=== PATIENT | female | born 1935 | race Caucasian/White ===

== ENCOUNTER 2018-03-17 16:01 | Outpatient (REF) | payer MEDICARE, BC, MEDICAID, SELFPAY ==
[2018-03-17 16:34] LABS: HCT 40.2 % (36.0-46.0); HGB 12.7 g/dL (12.0-15.5); Mean Corp. HGB Concentration 31.6 g/dL (32.0-36.0); Mean Corpuscular Hemoglobin 31.1 pg (27.0-33.0); Mean Corpuscular Volume 98.3 fL (80-95); Mean Platelet Volume 12.7 fL (8.0-11.0); RBC 4.09 m/cumm (4.00-5.20); RBC Distribution Width 14.9 % (11.7-14.6); White Blood Cell Count 6.06 k/cumm (4.4-10.8)
[2018-03-17 16:48] LABS: Platelet Count 95 x1000/uL (130-400)
[2018-03-17 17:44] LABS: ALT 13 U/L (12-78); AST 25 U/L (15-37); Albumin 3.3 g/dL (3.4-5.0); Alkaline Phosphatase 74 U/L (46-116); Anion Gap 6.2 mmol/L (3-11); BUN 25 mg/dL (7-18); Bilirubin, Total 0.9 mg/dL (0.2-1.0); CO2 27.8 mmol/L (21.0-32.0); CREATININE 0.84 mg/dL (0.55-1.02); Calcium 8.2 mg/dL (8.5-10.1); Chloride 107 mmol/L (98-107); Glucose 77 mg/dL (70-100); Potassium 4.5 mmol/L (3.5-5.1); Sodium 141 mmol/L (136-145); Vitamin B12 930 pg/mL (193-986)
[2018-03-17 17:46] LABS: Folate > 20.0 ng/mL (8.6-20.0)
[2018-03-22 09:39] LABS: Methylmalonic Acid 0.24 nmol/mL (<=0.40)
== END 2018-03-17 16:21 ==
LOC: LBN 16:01
PROVIDERS: PCP Family Medicine; Visit Provider Family Medicine
DX: D64.9 Anemia, unspecified (principal)
CPT/HCPCS: 36415; 80053; 80186; 85027; 82607; 82746; 85045

== ENCOUNTER 2018-04-06 12:25 | Outpatient (REF) | payer MEDICARE, BC, MEDICAID, SELFPAY ==
[2018-04-06 15:42] LABS: ALT 19 U/L (12-78); AST 23 U/L (15-37); Albumin 3.4 g/dL (3.4-5.0); Alkaline Phosphatase 71 U/L (46-116); Anion Gap 9.1 mmol/L (3-11); BUN 21 mg/dL (7-18); Bilirubin, Total 1.5 mg/dL (0.2-1.0); CO2 29.9 mmol/L (21.0-32.0); CREATININE 0.92 mg/dL (0.55-1.02); Calcium 8.5 mg/dL (8.5-10.1); Chloride 106 mmol/L (98-107); Estimated GFR 58.44 (mL/min/1.73m2); Glucose 113 mg/dL (70-100); Sodium 145 mmol/L (136-145); Total Protein 6.1 g/dL (6.4-8.2)
[2018-04-06 15:49] LABS: Abs Immature Grans 0.01 k/cumm (0.0-0.09); Absolute Basophil Count 0.02 k/cumm (0.0-0.2); Absolute Eosinophil Count 0.08 k/cumm (0.0-0.7); Absolute Lymphocyte Count 0.44 k/cumm (1.2-3.4); Absolute Monocyte Count 0.33 k/cumm (0.11-0.7); Absolute Neutrophil Count 4.54 k/cumm (1.2-6.7); Basophils % 0.4; Eosinophils % 1.5; HGB 13.9 g/dL (12.0-15.5); Immature Grans % 0.2; Lymphocytes % 8.1; Mean Corp. HGB Concentration 32.3 g/dL (32.0-36.0); Mean Corpuscular Volume 99.1 fL (80-95); Mean Platelet Volume 12.6 fL (8.0-11.0); Monocytes % 6.1; Neutrophils % 83.7; RBC 4.34 m/cumm (4.00-5.20); RBC Distribution Width 16.4 % (11.7-14.6); White Blood Cell Count 5.42 k/cumm (4.4-10.8)
[2018-04-06 16:11] LABS: Platelet Count 79 x1000/uL (130-400)
== END 2018-04-06 12:45 ==
LOC: LBN 12:25
PROVIDERS: PCP Family Medicine; Visit Provider Nurse Practitioner Family
DX: R05 Cough (principal); R06.2 Wheezing; R50.9 Fever, unspecified
CPT/HCPCS: 80053; 85025

== ENCOUNTER 2018-04-06 14:41 | Outpatient (CLI) | payer MEDICARE, BC, MEDICAID, SELFPAY ==
--- NOTE | 2018-04-06 11:03 | DI.RAD_ITS ---
SYMPTOMS/DIAGNOSIS: COUGH, WHEEZE, FEVER AP CHEST: There are some increased interstitial markings in the lungs. The heart is top limits of normal in size. There is questionable prominence of the upper lobe vasculature which could be related to the patient's positioning, however, the possibility of pulmonary venous hypertension and mild congestive failure could not be excluded. Incidental note is made of an old healed fracture deformity involving the proximal left humerus and severe glenohumeral DJD. SUMMARY: The possibility of mild congestive failure is raised.
== END 2018-04-06 15:01 ==
PROVIDERS: PCP Family Medicine; Visit Provider Nurse Practitioner Family
DX: R05 Cough (principal); R06.2 Wheezing; R50.9 Fever, unspecified
CPT/HCPCS: 71045

== ENCOUNTER 2018-04-14 14:14 | Emergency (ER) | payer MEDICARE, BC, MEDICAID, SELFPAY ==
[2018-04-14] VITALS (26 sets, daily range): BP systolic 96–212; BP diastolic 71–193; PULSE 61–117; RESP 11–30; TEMP 36.4–36.5; O2SAT 87–100
--- NOTE | 2018-04-14 14:16 | DI.RAD_ITS ---
SYMPTOMS/DIAGNOSIS: FEVER, DECREASED ACTIVITY AP AND LATERAL CHEST: The heart is enlarged. Comparison with previous chest radiographs raise the possibility of slightly increased radiodensities at the right lung base and interval development of small bilateral pleural effusions. Additionally there is suggestion of left lower lobe patchy consolidation raising the possibility of pneumonia. CONCLUSION: Findings raising the possibility of pneumonia of the left lower lobe and mild CHF. Appropriate follow up studies requested.
--- NOTE | 2018-04-14 14:19 | W.ED.GENAD ---
Discharge Plan Disposition Patient Disposition: SNF (LEVEL 1) [facility] Condition: Improving Discharge Details Chief Complaint: Fever Clinical Impression: Pneumonia involving left lung, Congestive heart failure Reason For Visit: JUN Primary Care Provider: Darin Yancey ED Provider: Sp Blair Home Meds and New Rx's Prescriptions: Continue aspirin 81 MG tablet,delayed release (DR/EC) 81 mg PO DAILY Qty: 90 RF: 3 cyanocobalamin (vitamin B-12) [Vitamin B-12] 1,000 MCG tablet extended release 1,000 mcg PO DAILY Qty: 90 RF: 4 multivitamin 1 EACH capsule 1 ea PO DAILY Qty: 90 RF: 0 furosemide 20 MG tablet 20 mg PO BID@0830,1600 Qty: 90 RF: 1 acetaminophen [Tylenol] 325 MG tablet 650 mg PO Q6H PRN Qty: 360 RF: 3 sertraline [Zoloft] 50 MG tablet 25 mg PO DAILY Qty: 90 RF: 0 docusate sodium 100 MG capsule 100 mg PO BID Qty: 1 RF: 0 sennosides [senna] 8.6 MG capsule 8.6 mg PO BID Qty: 1 RF: 0 levothyroxine [Synthroid] 100 MCG tablet 100 mcg PO DAILY RF: 0 metoprolol tartrate 25 MG tablet 12.5 mg PO QAM RF: 0 polyethylene glycol 1450(bulk) [Polyglycol Bill Base] 1 GM powder 17 g PO QAM RF: 0 ferrous sulfate [FerrouSul] 325 MG tablet 325 mg PO QPM RF: 0 oxycodone 5 MG tablet 5 mg PO QAM RF: 0 albuterol sulfate 2.5 MG/3 ML solution for nebulization 2.5 mg Inhalation Q4H PRN PRN (Reason: Dyspnea) RF: 0 guaifenesin 100 MG/5 ML liquid 5 ml PO Q6H PRN PRN (Reason: Cough) RF: 0 magnesium hydroxide [Milk of Magnesia] 30 ML suspension 30 ml PO DAILY PRN (Reason: Constipation) RF: 0 bisacodyl [Dulcolax (bisacodyl)] 10 MG suppository 1 supp [place] DAILY PRNRF: 0 memantine [Namenda XR] 28 MG capsule,sprinkle,ER 24hr 28 mg PO DAILY RF: 0 oxycodone 5 MG tablet 5 mg PO Q12H PRN PRN (Reason: Pain) Qty: 10 RF: 0 ipratropium-albuterol 3 ML solution for nebulization 3 ml UPD Q4H PRN PRNQty: 0 RF: 0 benzonatate 100 MG capsule 100 mg PO TID Qty: 15 RF: 0 folic acid 1 mg Tablet 1 mg PO DAILY RF: 0 saliva substitute combo no.9 [Biotene Dry Mouth Oral Rinse] Mouthwash 5 ml PO AC RF: 0 magnesium oxide 400 MG tablet 400 mg PO BID RF: 0 Discontinued cefpodoxime 200 MG tablet 200 mg PO BID RF: 0 clindamycin HCl 300 MG capsule 300 mg PO TID Qty: 21 RF: 0 Discharge Instructions Instructions: Pneumonia (ED) Additional Instructions: I discussed your case today with Dr. Muse. You has evidence of pneumonia, dehydration, as well as persistent congestive heart failure. You received approximately 250 cc of fluid in the emergency department as well as a dose of ceftriaxone. Medical Decision Making This is a 82-year-old female who lives in local rehabilitation facility where she developed a fever overnight and question of decreased responsiveness today for which she is referred to the ED. She is known to be DNR, DNI, with numerous medical comorbidities and wishes for comfort measures to include antibiotics if needed. Prior to transfer the patient had been given parenteral fluids as well as a double dose of oral Lasix. She arrives with a rectal temperature of 36.5, mild resting tachycardia, otherwise unremarkable vital signs. She has normal oxygenation on room air. The differential diagnosis includes elective right abnormality, fluid imbalance, infectious etiology such as UTI or pneumonia. Patient had IV access established, given small aliquot of fluid, referred for laboratory testing, urinalysis, chest x-ray. Patient's imaging reveals evidence of both infiltrate as well as fluid overload which may be chronic. Her laboratory analysis notes a rise of the BUN from 21-30 over 8 days time. Her sodium is 145 with a potassium of 3.6. Lactic acid 1.4. BNP 34,000. CBC reveals white blood cell count of 4, hematocrit 40, platelets 68; urinalysis with specific gravity greater than 1.03, trace ketones, leuk esterase present. Case discussed with Dr. Muse, we will administer a dose of ceftriaxone the patient will return to the rehabilitation facility. The patient is essentially bedbound at this time and therefore I do feel that she will require ambulance transport. I discussed with her son the patient's diagnostic findings and plan of care. HPI General Mode of arrival: ambulatory. Date/Time Provider Initiated Documentation: 04/14/18 14:24. Limitations to Documentation: altered mental status. Information obtained by: EMS, RN notes reviewed and old records reviewed. History of Present Illness 82 year old F presents to the emergency department with the chief complaint of Fever last night, and it has been now resolved. HPI Narrative: 82-year-old female who is DNR, DNI, on comfort measures at local rehabilitation facility but has her wishes stating she is okay to transport if not comfortable and will take antibiotic therapy. She is referred for fever last night with question of associated hypoxia as well as report of decreased activity level today. She is not contributory to the history, which is obtained from records, EMS, rehabilitation facility Related Data Home Medications Medication Instructions Recorded Confirmed aspirin 81 mg PO DAILY #90 tabec 11/16/12 04/14/18 cyanocobalamin (vitamin B-12) 1,000 mcg PO DAILY #90 tab-cap 02/02/13 04/14/18 [Vitamin B-12] multivitamin 1 ea PO DAILY #90 tab-cap 02/02/13 04/14/18 furosemide 20 mg PO BID@0830,1600 #90 tab 05/07/13 04/14/18 acetaminophen [Tylenol] 650 mg PO Q6H PRN #360 tab-cap 05/31/13 04/14/18 sertraline [Zoloft] 25 mg PO DAILY #90 tab-cap 06/18/13 04/14/18 levothyroxine [Synthroid] 100 mcg PO DAILY 06/27/13 04/14/18 docusate sodium 100 mg PO BID #1 tab-cap 10/14/13 04/14/18 sennosides [senna] 8.6 mg PO BID #1 10/14/13 04/14/18 ferrous sulfate [FerrouSul] 325 mg PO QPM 08/16/16 04/14/18 metoprolol tartrate 12.5 mg PO QAM 08/16/16 04/14/18 oxycodone 5 mg PO QAM 08/16/16 04/14/18 polyethylene glycol 1450(bulk) 17 g PO QAM 08/16/16 04/14/18 [Polyglycol Bill Base] albuterol sulfate 2.5 mg INHALATION Q4H PRN PRN 08/23/16 08/14/17 bisacodyl [Dulcolax (bisacodyl)] 1 supp NH DAILY PRN 08/23/16 04/14/18 guaifenesin 5 ml PO Q6H PRN PRN 08/23/16 04/14/18 magnesium hydroxide [Milk of 30 ml PO DAILY PRN 08/23/16 04/14/18 Magnesia] memantine [Namenda XR] 28 mg PO DAILY 08/23/16 04/14/18 oxycodone 5 mg PO Q12H PRN PRN #10 tab 08/25/16 04/14/18 benzonatate 100 mg PO TID #15 cap 08/19/17 04/14/18 ipratropium-albuterol 3 ml UPD Q4H PRN PRN #0 vial 08/19/17 04/14/18 folic acid 1 mg PO DAILY 04/14/18 04/14/18 magnesium oxide 400 mg PO BID 04/14/18 04/14/18 saliva substitute combo no.9 5 ml PO AC 04/14/18 04/14/18 [Biotene Dry Mouth Oral Rinse] Previous Rx's Medication Instructions Recorded oxycodone 5 mg PO Q12H PRN PRN #10 tab 08/25/16 benzonatate 100 mg PO TID #15 cap 08/19/17 ipratropium-albuterol 3 ml UPD Q4H PRN PRN #0 vial 08/19/17 Allergies Allergy/AdvReac Type Severity Reaction Status Date / Time No Known Allergies Allergy Unverified 04/14/18 14:27 General Stated Complaint: Fever VERNA: 2 Review of Systems Review of Systems Unobtainable due to mental status [facility] Medical History Acquired kyphosis Acquired thrombocytopenia Anemia Aortic aneurysm Aortic valve stenosis CHF (congestive heart failure) Cardiomyopathy Depression Gallstone ileus Hyperlipidemia Hypertension Hypothyroidism LVH (left ventricular hypertrophy) Leg varices Mitral valve regurgitation, rheumatic Non-toxic multinodular goiter Obesity Onychomycosis Osteoarthritis Senile dementia Urinary, incontinence, stress female Social History Smoking/Tobacco Use Status: Never Surgical History ANKLE FUSION BONE MARROW BX (~11/2011) Bilateral salpingectomy with oophorectomy CT SCAN Extraction of cataract Incision & Drainage, Abscess or Hematoma Replacement of total knee joint excision of hematoma Exam Narrative Exam Narrative: GEN: awake, responds to voice and opens eyes, well groomed, interactive. HEAD: Normocephalic, atraumatic ENT: Mucous membranes dry, oropharynx without swelling or exudate. External ear exam unremarkable EYES: PERRL, EOMI NECK: Full ROM, no NICOLETTE, no menigismus CHEST/RESP: Nontender, clear to auscultation bilateral, no wheeze/rhonchi/rales CARDIOVASCULAR: Regular, tachycardia, no murmur, rub autumn. 2+ Rad pulse bilateral ABDOMEN: Soft, nontender, no mass. +Bowel sounds EXT: Full ROM, no edema, no rash Neuro: Patient is not oriented to person or place. She responds to voice moves all 4 extremities per Psych: Unable to assess Course Vital Signs Temperature 36.4 C L 04/14/18 14:10 Pulse 113 H 04/14/18 14:10 Respiratory Rate 28 H 04/14/18 14:10 Blood Pressure 157/123 H 04/14/18 14:10 Pulse Oximetry 100 04/14/18 14:10 Temperature 36.4 C L 04/14/18 14:10 Temperature Source Skin 04/14/18 14:10 Pulse 113 H 04/14/18 14:10 Respiratory Rate 28 H 04/14/18 14:10 Blood Pressure 157/123 H 04/14/18 14:10 Pulse Oximetry 100 04/14/18 14:10 Oxygen Delivery Method Room Air 04/14/18 14:10 Oxygen Flow Rate 0 04/14/18 14:10
--- NOTE | 2018-04-14 14:24 | ED.GENADUL_ITS ---
Discharge Plan Disposition Patient Disposition: SNF (LEVEL 1) [facility] Condition: Improving Discharge Details Chief Complaint: Fever Clinical Impression: Pneumonia involving left lung, Congestive heart failure Reason For Visit: JUN Primary Care Provider: Darin Yancey ED Provider: Sp Blair Home Meds and New Rx's Prescriptions: Continue aspirin 81 MG tablet,delayed release (DR/EC) 81 mg PO DAILY Qty: 90 RF: 3 cyanocobalamin (vitamin B-12) [Vitamin B-12] 1,000 MCG tablet extended release 1,000 mcg PO DAILY Qty: 90 RF: 4 multivitamin 1 EACH capsule 1 ea PO DAILY Qty: 90 RF: 0 furosemide 20 MG tablet 20 mg PO BID@0830,1600 Qty: 90 RF: 1 acetaminophen [Tylenol] 325 MG tablet 650 mg PO Q6H PRN Qty: 360 RF: 3 sertraline [Zoloft] 50 MG tablet 25 mg PO DAILY Qty: 90 RF: 0 docusate sodium 100 MG capsule 100 mg PO BID Qty: 1 RF: 0 sennosides [senna] 8.6 MG capsule 8.6 mg PO BID Qty: 1 RF: 0 levothyroxine [Synthroid] 100 MCG tablet 100 mcg PO DAILY RF: 0 metoprolol tartrate 25 MG tablet 12.5 mg PO QAM RF: 0 polyethylene glycol 1450(bulk) [Polyglycol Bill Base] 1 GM powder 17 g PO QAM RF: 0 ferrous sulfate [FerrouSul] 325 MG tablet 325 mg PO QPM RF: 0 oxycodone 5 MG tablet 5 mg PO QAM RF: 0 albuterol sulfate 2.5 MG/3 ML solution for nebulization 2.5 mg Inhalation Q4H PRN PRN (Reason: Dyspnea) RF: 0 guaifenesin 100 MG/5 ML liquid 5 ml PO Q6H PRN PRN (Reason: Cough) RF: 0 magnesium hydroxide [Milk of Magnesia] 30 ML suspension 30 ml PO DAILY PRN (Reason: Constipation) RF: 0 bisacodyl [Dulcolax (bisacodyl)] 10 MG suppository 1 supp [place] DAILY PRNRF: 0 memantine [Namenda XR] 28 MG capsule,sprinkle,ER 24hr 28 mg PO DAILY RF: 0 oxycodone 5 MG tablet 5 mg PO Q12H PRN PRN (Reason: Pain) Qty: 10 RF: 0 ipratropium-albuterol 3 ML solution for nebulization 3 ml UPD Q4H PRN PRNQty: 0 RF: 0 benzonatate 100 MG capsule 100 mg PO TID Qty: 15 RF: 0 folic acid 1 mg Tablet 1 mg PO DAILY RF: 0 saliva substitute combo no.9 [Biotene Dry Mouth Oral Rinse] Mouthwash 5 ml PO AC RF: 0 magnesium oxide 400 MG tablet 400 mg PO BID RF: 0 Discontinued cefpodoxime 200 MG tablet 200 mg PO BID RF: 0 clindamycin HCl 300 MG capsule 300 mg PO TID Qty: 21 RF: 0 Discharge Instructions Instructions: Pneumonia (ED) Additional Instructions: I discussed your case today with Dr. Muse. You has evidence of pneumonia, dehydration, as well as persistent congestive heart failure. You received approximately 250 cc of fluid in the emergency department as well as a dose of ceftriaxone. Medical Decision Making This is a 82-year-old female who lives in local rehabilitation facility where she developed a fever overnight and question of decreased responsiveness today for which she is referred to the ED. She is known to be DNR, DNI, with numerous medical comorbidities and wishes for comfort measures to include antibiotics if needed. Prior to transfer the patient had been given parenteral fluids as well as a double dose of oral Lasix. She arrives with a rectal temperature of 36.5, mild resting tachycardia, otherwise unremarkable vital signs. She has normal oxygenation on room air. The differential diagnosis includes elective right abnormality, fluid imbalance, infectious etiology such as UTI or pneumonia. Patient had IV access established, given small aliquot of fluid, referred for laboratory testing, urinalysis, chest x-ray. Patient's imaging reveals evidence of both infiltrate as well as fluid overload which may be chronic. Her laboratory analysis notes a rise of the BUN from 21- 30 over 8 days time. Her sodium is 145 with a potassium of 3.6. Lactic acid 1.4. BNP 34,000. CBC reveals white blood cell count of 4, hematocrit 40, platelets 68; urinalysis with specific gravity greater than 1.03, trace ketones , leuk esterase present. Case discussed with Dr. Muse, we will administer a dose of ceftriaxone the patient will return to the rehabilitation facility. The patient is essentially bedbound at this time and therefore I do feel that she will require ambulance transport. I discussed with her son the patient's diagnostic findings and plan of care. HPI General Mode of arrival: ambulatory . Date/Time Provider Initiated Documentation: 04/14/18 14:24 . Limitations to Documentation: altered mental status . Information obtained by: EMS, RN notes reviewed and old records reviewed . History of Present Illness 82 year old F presents to the emergency department with the chief complaint of Fever last night, and it has been now resolved. HPI Narrative: 82-year-old female who is DNR, DNI, on comfort measures at local rehabilitation facility but has her wishes stating she is okay to transport if not comfortable and will take antibiotic therapy. She is referred for fever last night with question of associated hypoxia as well as report of decreased activity level today. She is not contributory to the history, which is obtained from records, EMS, rehabilitation facility Related Data Home Medications Medication Instructions Recorded Confirmed aspirin 81 mg PO DAILY #90 tabec 11/16/12 04/14/18 cyanocobalamin (vitamin B-12) 1,000 mcg PO DAILY #90 tab-cap 02/02/13 04/14/18 [Vitamin B-12] multivitamin 1 ea PO DAILY #90 tab-cap 02/02/13 04/14/18 furosemide 20 mg PO BID@0830,1600 #90 tab 05/07/13 04/14/18 acetaminophen [Tylenol] 650 mg PO Q6H PRN #360 tab-cap 05/31/13 04/14/18 sertraline [Zoloft] 25 mg PO DAILY #90 tab-cap 06/18/13 04/14/18 levothyroxine [Synthroid] 100 mcg PO DAILY 06/27/13 04/14/18 docusate sodium 100 mg PO BID #1 tab-cap 10/14/13 04/14/18 sennosides [senna] 8.6 mg PO BID #1 10/14/13 04/14/18 ferrous sulfate [FerrouSul] 325 mg PO QPM 08/16/16 04/14/18 metoprolol tartrate 12.5 mg PO QAM 08/16/16 04/14/18 oxycodone 5 mg PO QAM 08/16/16 04/14/18 polyethylene glycol 1450(bulk) 17 g PO QAM 08/16/16 04/14/18 [Polyglycol Bill Base] albuterol sulfate 2.5 mg INHALATION Q4H PRN PRN 08/23/16 08/14/17 bisacodyl [Dulcolax (bisacodyl)] 1 supp NC DAILY PRN 08/23/16 04/14/18 guaifenesin 5 ml PO Q6H PRN PRN 08/23/16 04/14/18 magnesium hydroxide [Milk of 30 ml PO DAILY PRN 08/23/16 04/14/18 Magnesia] memantine [Namenda XR] 28 mg PO DAILY 08/23/16 04/14/18 oxycodone 5 mg PO Q12H PRN PRN #10 tab 08/25/16 04/14/18 benzonatate 100 mg PO TID #15 cap 08/19/17 04/14/18 ipratropium-albuterol 3 ml UPD Q4H PRN PRN #0 vial 08/19/17 04/14/18 folic acid 1 mg PO DAILY 04/14/18 04/14/18 magnesium oxide 400 mg PO BID 04/14/18 04/14/18 saliva substitute combo no.9 5 ml PO AC 04/14/18 04/14/18 [Biotene Dry Mouth Oral Rinse] Previous Rx's Medication Instructions Recorded oxycodone 5 mg PO Q12H PRN PRN #10 tab 08/25/16 benzonatate 100 mg PO TID #15 cap 08/19/17 ipratropium-albuterol 3 ml UPD Q4H PRN PRN #0 vial 08/19/17 Allergies Allergy/AdvReac Type Severity Reaction Status Date / Time No Known Allergies Allergy Unverified 04/14/18 14:27 General Stated Complaint: Fever VERNA: 2 Review of Systems Review of Systems Unobtainable due to mental status [facility] Medical History Acquired kyphosis Acquired thrombocytopenia Anemia Aortic aneurysm Aortic valve stenosis CHF (congestive heart failure) Cardiomyopathy Depression Gallstone ileus Hyperlipidemia Hypertension Hypothyroidism LVH (left ventricular hypertrophy) Leg varices Mitral valve regurgitation, rheumatic Non-toxic multinodular goiter Obesity Onychomycosis Osteoarthritis Senile dementia Urinary, incontinence, stress female Social History Smoking/Tobacco Use Status: Never Surgical History ANKLE FUSION BONE MARROW BX (~11/2011) Bilateral salpingectomy with oophorectomy CT SCAN Extraction of cataract Incision & Drainage, Abscess or Hematoma Replacement of total knee joint excision of hematoma Exam Narrative Exam Narrative: GEN: awake, responds to voice and opens eyes, well groomed, interactive. HEAD: Normocephalic, atraumatic ENT: Mucous membranes dry, oropharynx without swelling or exudate. External ear exam unremarkable EYES: PERRL, EOMI NECK: Full ROM, no NICOLETTE, no menigismus CHEST/RESP: Nontender, clear to auscultation bilateral, no wheeze/rhonchi/rales CARDIOVASCULAR: Regular, tachycardia, no murmur, rub autumn. 2+ Rad pulse bilateral ABDOMEN: Soft, nontender, no mass. +Bowel sounds EXT: Full ROM, no edema, no rash Neuro: Patient is not oriented to person or place. She responds to voice moves all 4 extremities per Psych: Unable to assess Course Vital Signs Temperature 36.4 C L 04/14/18 14:10 Pulse 113 H 04/14/18 14:10 Respiratory Rate 28 H 04/14/18 14:10 Blood Pressure 157/123 H 04/14/18 14:10 Pulse Oximetry 100 04/14/18 14:10 Temperature 36.4 C L 04/14/18 14:10 Temperature Source Skin 04/14/18 14:10 Pulse 113 H 04/14/18 14:10 Respiratory Rate 28 H 04/14/18 14:10 Blood Pressure 157/123 H 04/14/18 14:10 Pulse Oximetry 100 04/14/18 14:10 Oxygen Delivery Method Room Air 04/14/18 14:10 Oxygen Flow Rate 0 04/14/18 14:10
[2018-04-14 14:34] LABS: Lactate-non-spesis 1.4 mmol/L (0.6-1.4)
[2018-04-14 14:35] LABS: Abs Immature Grans 0.01 k/cumm (0.0-0.09); Absolute Basophil Count 0.02 k/cumm (0.0-0.2); Absolute Eosinophil Count 0.12 k/cumm (0.0-0.7); Absolute Lymphocyte Count 1.06 k/cumm (1.2-3.4); Absolute Monocyte Count 0.47 k/cumm (0.11-0.7); Absolute Neutrophil Count 3.08 k/cumm (1.2-6.7); Basophils % 0.4; Eosinophils % 2.5; HCT 40.3 % (36.0-46.0); HGB 12.9 g/dL (12.0-15.5); Immature Grans % 0.2; Lymphocytes % 22.3; Mean Corpuscular Hemoglobin 32.1 pg (27.0-33.0); Mean Corpuscular Volume 100.2 fL (80-95); Mean Platelet Volume 12.5 fL (8.0-11.0); Monocytes % 9.9; Neutrophils % 64.7; RBC 4.02 m/cumm (4.00-5.20); RBC Distribution Width 16.4 % (11.7-14.6); White Blood Cell Count 4.76 k/cumm (4.4-10.8)
[2018-04-14 14:36] LABS: Bilirubin Small (Negative); Blood Large (Negative); Clarity Cloudy; Glucose Negative (Negative); Ketones Trace mg/dL (Negative); Leukocyte Esterase Small (Negative); Nitrite Negative (Negative); Specific Gravity >= 1.030 (1.005-1.025); Urobilinogen 0.2 EU/dL (Up TO 0.2); pH 5.5 (5-8)
[2018-04-14 14:49] LABS: ALT 18 U/L (12-78); AST 21 U/L (15-37); Albumin 2.9 g/dL (3.4-5.0); Alkaline Phosphatase 57 U/L (46-116); Anion Gap 9.6 mmol/L (3-11); BUN 30 mg/dL (7-18); Bilirubin, Total 1.5 mg/dL (0.2-1.0); CO2 27.4 mmol/L (21.0-32.0); CREATININE 0.89 mg/dL (0.55-1.02); Calcium 7.7 mg/dL (8.5-10.1); Chloride 108 mmol/L (98-107); Glucose 103 mg/dL (70-100); Magnesium 1.9 mg/dL (1.8-2.4); Potassium 3.6 mmol/L (3.5-5.1); Sodium 145 mmol/L (136-145); Total Protein 5.7 g/dL (6.4-8.2)
[2018-04-14] MEDS: Normal Saline 250 ML IV (14:55)
[2018-04-14 15:03] LABS: Bacteria Many HPF (Negative); C & S Indicated? Yes; Casts Negative LPF (Negative); Crystals Negative HPF (Negative); Epithelial Cells Negative HPF (Negative); Mucus Moderate (Negative); Other Cells Few Renal (Negative); RBC 20-50 (0-2)
[2018-04-14 15:05] LABS: Diff Comment Diff Reviewed; Platelet Count 68 x1000/uL (130-400); Polychromasia Present
[2018-04-14 15:06] LABS: Poikilocytes 2+
--- NOTE | 2018-04-14 15:52 | PDOC.ERCMPRO ---
Care Management Progress Note 04/14-Leyla needs transportation back to the rehab today. Discussed with Dr. Blair and he states that patient is bed bound and can only go by ambulance. [place] will call [facility] when patient ready to transport back.
== END 2018-04-14 16:40 | disposition skilled nursing facility (03) ==
LOC: ER 16:13
PROVIDERS: Emergency Provider Emergency Medicine; PCP Family Medicine
DX: J18.9 Pneumonia, unspecified organism (principal); I50.9 Heart failure, unspecified; I11.0 Hypertensive heart disease with heart failure; E86.0 Dehydration; F03.90 Unspecified dementia, unspecified severity, without behavioral disturbance, psychotic disturbance, mood disturbance, and anxiety
CPT/HCPCS: 36415; 80053; 87077; 93005; 96361; 96365; 99285; 71046; 81003; 81015; 83605; 83735; 83880; 85025; 87086; 87186; 93010; 99284; J0696